=== PATIENT | female | born 1960 | race Caucasian/White ===

== ENCOUNTER 2020-10-05 07:55 | Emergency (ER) | payer OTHER ==
[2020-10-05] MEDS: Morphine 4 MG/ML VIAL IVPUSH ONE (08:27)
[2020-10-05] MEDS: Ondansetron 4 MG/2 ML SDV IVPUSH STA (08:27)
[2020-10-05 08:31] LABS: CHLORIDE,CL 104 mEq/L (98-106); SODIUM,NA 142 mEq/L (136-145)
--- NOTE | 2020-10-05 08:35 | EDM.PDOC ---
ED HPI GENERAL MEDICAL PROBLEM - General Chief Complaint: Gastrointestinal Problem Stated Complaint: abd pain Time Seen by Provider: 10/05/20 08:09 Source of Information: Reports: Patient History Limitations: Reports: No Limitations - History of Present Illness INITIAL COMMENTS - FREE TEXT/NARRATIVE: This patient is a 60 year old female that presents to the ER. Patient reports that at 5am this morning she woke from her sleep, had to urinate. She went to bathroom, urinated, then went back to bed and had sharp severe pain to the right lower abdomen. Patient reports nausea and x2 vomiting. Patient deneis fever, diarrhea, chest pain, shortness of breath, back pain. Onset: Today Onset Date: 10/05/20 Onset Time: 05:00 Location: Reports: Abdomen Quality: Reports: Sharp Severity: Moderate Improves with: Reports: None Worsens with: Reports: None Associated Symptoms: Reports: No Other Symptoms, Nausea/Vomiting. Denies: Confusion, Chest Pain, Cough, cough w sputum, Diaphoresis, Fever/Chills, Headaches, Malaise, Rash, Seizure, Shortness of Breath, Syncope, Weakness Right Lower Abdomen Pain Score (Numeric/FACES): 8 - Related Data Allergies Allergy/AdvReac Type Severity Reaction Status Date / Time No Known Allergies Allergy Verified 10/05/20 08:21 Home Meds: Home Meds . [No Known Home Meds] 10/05/20 [History] Past Medical History - Past Health History Medical/Surgical History: Denies Medical/Surgical History Social & Family History - Tobacco Use Tobacco Use Status *Q: Former Tobacco User Used Tobacco, but Quit: Yes Month/Year Tobacco Last Used: 8 y.o - Caffeine Use Caffeine Use: Reports: Coffee - Recreational Drug Use Recreational Drug Use: No ED ROS GENERAL - Review of Systems Review Of Systems: See Below Constitutional: Reports: No Symptoms HEENT: Reports: No Symptoms Respiratory: Reports: No Symptoms Cardiovascular: Reports: No Symptoms Endocrine: Reports: No Symptoms GI/Abdominal: Reports: Abdominal Pain : Reports: No Symptoms Musculoskeletal: Reports: No Symptoms Skin: Reports: No Symptoms Neurological: Reports: No Symptoms Psychiatric: Reports: No Symptoms Hematologic/Lymphatic: Reports: No Symptoms Immunologic: Reports: No Symptoms ED EXAM, GI/ABD - Physical Exam Exam: See Below Exam Limited By: No Limitations General Appearance: Alert, WD/WN, No Apparent Distress Ears: Normal External Exam, Normal Canal, Hearing Grossly Normal, Normal TMs Nose: Normal Inspection, Normal Mucosa, No Blood Throat/Mouth: Normal Inspection, Normal Lips, Normal Teeth, Normal Gums, Normal Oropharynx, Normal Voice, No Airway Compromise Head: Atraumatic, Normocephalic Neck: Normal Inspection, Supple, Non-Tender Respiratory/Chest: No Respiratory Distress, Lungs Clear, Normal Breath Sounds, No Accessory Muscle Use Cardiovascular: Normal Peripheral Pulses, Regular Rate, Rhythm, No Edema, No Gallop, No JVD, No Murmur, No Rub GI/Abdominal Exam: Normal Bowel Sounds, Soft, No Organomegaly, No Distention, No Abnormal Bruit, No Mass, Pelvis Stable, Tender (RLQ, RUQ) Back Exam: Normal Inspection, Full Range of Motion. No: CVA Tenderness (L), CVA Tenderness (R) Extremities: Normal Inspection, Normal Range of Motion, Non-Tender, No Pedal Edema, Normal Capillary Refill Neurological: Alert, Oriented, Normal Cognition, Normal Gait, No Motor/Sensory Deficits Psychiatric: Normal Affect, Normal Mood Skin Exam: Warm, Dry, Intact, Normal Color, No Rash Lymphatic: No Adenopathy Course - Vital Signs Last Recorded V/S: Last Vital Signs Temp 95.6 F L 10/05/20 08:07 Pulse 70 10/05/20 08:10 Resp 22 H 10/05/20 08:07 BP 149/68 H 10/05/20 08:24 Pulse Ox 100 10/05/20 08:10 - Orders/Labs/Meds Orders: Active Orders 24 hr Category Date Time Status Abdomen Pelvis wo Cont [CT] Stat Exams 10/05/20 08:41 Taken Sodium Chloride 0.9% [Normal Saline] 1,000 ml Med 10/05/20 09:15 Active IV .BOLUS Medication Orders Sodium Chloride (Normal Saline) 1,000 mls @ 999 mls/hr IV .BOLUS ONE Stop: 10/05/20 10:15 Last Admin: 10/05/20 09:21 Dose: 999 mls/hr Documented by: JEANETTE Labs: Laboratory Tests 10/05/20 10/05/20 10/05/20 Range/Units 08:09 08:14 08:14 WBC 9.2 (4.0-11.0) 10^3/uL RBC 4.51 (4.00-5.50) x10^6/uL Hgb 13.8 (12.0-16.0) g/dL Hct 40.2 (37.0-47.0) % MCV 89.1 (83.0-97.0) fL MCH 30.6 (27.0-32.0) pg MCHC 34.3 (32.0-36.0) g/dL RDW Coeff of Michelle 12.5 (11.0-15.0) % Plt Count 211 (150-400) 10^3/uL Immature Gran % (Auto) 0.3 (0.0-4.9) % Neut % (Auto) 65.3 (41-71) % Lymph % (Auto) 26.3 (24-44) % [place] % (Auto) 6.4 (0-10) % Eos % (Auto) 1.4 (0-6) % Baso % (Auto) 0.3 (0-1) % Neut # (Auto) 6.03 (1.80-8.00) x10^3/uL Lymph # (Auto) 2.43 (0.60-5.00) 10^3/uL [place] # (Auto) 0.59 (0.00-1.50) 10^3/uL Eos # (Auto) 0.13 (0.00-1.50) 10^3/uL Baso # (Auto) 0.03 (0.00-0.50) 10^3/uL Immature Gran # (Auto) 0.03 (0.00-0.49) 10^3/uL Sodium 142 (136-145) mEq/L Potassium 3.8 (3.5-5.0) mEq/L Chloride 104 (98-106) mEq/L Carbon Dioxide 23 (21-32) mmol/L BUN 20 H (7-18) mg/dL Creatinine 1.0 (0.6-1.0) mg/dL Est Cr Clr Drug Dosing 46.13 mL/min Estimated GFR (MDRD) 56 L (>=60) mL/min Glucose 123 H D (75-99) mg/dL Calcium 9.7 (8.4-10.1) mg/dL Total Bilirubin 1.0 (0.0-1.0) mg/dL AST 18 (15-37) U/L ALT 19 (12-78) U/L Alkaline Phosphatase 73 (46-116) U/L C-Reactive Protein < 0.2 L (0.2-0.8) mg/dL Total Protein 8.0 (6.4-8.2) g/dL Albumin 4.1 (3.4-5.0) g/dL Amylase 42 (25-115) U/L Lipase 100 (73-393) U/L Urine Color Dark yellow (YELLOW) Urine Appearance Slightly cloudy (CLEAR) Urine pH 6.0 (4.5-8.0) Ur Specific [place] >= 1.030 H (1.003-1.020) Urine Protein 100 H (NEGATIVE) mg/dL Urine Glucose (UA) Negative (NEGATIVE) mg/dL Urine Ketones Negative (NEGATIVE) mg/dL Urine Occult Blood Large H (NEGATIVE) Urine Nitrite Negative (NEGATIVE) Urine Bilirubin Negative (NEGATIVE) Urine Urobilinogen 0.2 (0.2-1.0) EU/dL Ur Leukocyte Esterase Negative (NEGATIVE) Urine RBC >100 H (0-5) /HPF Urine WBC 5-10 H (0-5) /HPF Ur Epithelial Cells Few H (NOT SEEN) /HPF Urine Bacteria Few H (NOT SEEN) /HPF Urine Mucus Few H (NOT SEEN) /HPF Meds: Medications Generic Name Dose Route Start Last Admin Trade Name Freq PRN Reason Stop Dose Admin Sodium Chloride 1,000 mls @ 999 mls/hr 10/05/20 09:15 10/05/20 09:21 Normal Saline IV 10/05/20 10:15 999 mls/hr .BOLUS ONE Administration Discontinued Medications Generic Name Dose Route Start Last Admin Trade Name Freq PRN Reason Stop Dose Admin Ketorolac Tromethamine 30 mg 10/05/20 09:15 10/05/20 09:21 Ketorolac 30 Mg/Ml Sdv IVPUSH 10/05/20 09:16 30 mg ONETIME ONE Administration Morphine Sulfate 4 mg 10/05/20 08:22 10/05/20 08:27 Morphine 4 Mg/Ml Vial IVPUSH 10/05/20 08:23 4 mg ONETIME ONE Administration Ondansetron HCl 4 mg 10/05/20 08:22 10/05/20 08:27 Ondansetron 4 Mg/2 Ml Sdv IVPUSH 10/05/20 08:23 4 mg NOW STA Administration - Radiology Interpretation Free Text/Narrative:: CT Abd/Pelvis without contrast: Right hydronephrosis, distal ureter inflammation. No visible stone, may have passed. Otherwise abdomen/pelvis unremarkable. CT Results Date: 10/05/20 CT Results Time: 10:05 - Re-Assessments/Exams Free Text/Narrative Re-Assessment/Exam: 10/05/20 08:46 Reviewed patient labs. No elevated wbc, no fever. Her urine is blood filled. Will CT without contrast. 10/05/20 10:09 Patient has been pain free since urinating in the ER. Departure - Departure Time of Disposition: 10:07 Disposition: Home, Self-Care 01 Condition: Good Clinical Impression: Hydronephrosis Qualifiers: Hydronephrosis type: other Qualified Code(s): N13.39 - Other hydronephrosis - Discharge Information *PRESCRIPTION DRUG MONITORING PROGRAM REVIEWED*: Not Applicable *COPY OF PRESCRIPTION DRUG MONITORING REPORT IN PATIENT CHARISSE: Not Applicable Instructions: Kidney Stones, [id number] Forms: ED Department Discharge Additional Instructions: Followup with your primary care provider as needed Return to the ER for worsening of condition or any emergent concerns Increase water intake Sepsis Event Note (ED) - Evaluation Sepsis Screening Result: No Definite Risk - Focused Exam Vital Signs: Vital Signs Temp Pulse Resp BP Pulse Ox 10/05/20 08:24 149/68 H 10/05/20 08:10 70 161/79 H 100 10/05/20 08:07 95.6 F L 82 22 H 156/100 H 100 - My Orders Last 24 Hours: My Active Orders 10/05/20 08:41 Abdomen Pelvis wo Cont [CT] Stat 10/05/20 09:15 Sodium Chloride 0.9% [Normal Saline] 1,000 ml IV .BOLUS - Assessment/Plan Last 24 Hours: My Active Orders 10/05/20 08:41 Abdomen Pelvis wo Cont [CT] Stat 10/05/20 09:15 Sodium Chloride 0.9% [Normal Saline] 1,000 ml IV .BOLUS Plan: PLEASE SEE RN NOTE FOR PFSH
[2020-10-05] MEDS: Ketorolac 30 MG/ML SDV IVPUSH ONE (09:21)
[2020-10-05] MEDS: Sodium Chloride 0.9% 1,000 ML IV ONE (09:21)
== END 2020-10-05 10:20 | disposition home or self-care (01) ==
LOC: CC.ED 07:55
DX: N13.39 Other hydronephrosis (principal); Z87.891 Personal history of nicotine dependence
CPT/HCPCS: 36415; 74176; 80053; 81001; 82150; 83690; 85025; 86140; 96374; 96375; 99284; J1885; J2270; J2405; J7030

== ENCOUNTER → 2022-06-03 | Day surgery (SDC) | payer BC ==
[~2022-06-03] MED LIST: Lidocaine 1% 5 ML VIAL ONE; Lidocaine 1% w/EPINEPHrine 100 ML, Sodium Chloride 0.9% 900 ML, Sodium Bicarbonate 10 MEQ INJECT ONE
[2022-06-03] MEDS: Lidocaine 1% 5 ML VIAL INJECT ONE (14:33)
== END ==
LOC: CC.SDS 13:08
PROVIDERS: ATTEND Family Medicine
DX: I83.812 Varicose veins of left lower extremity with pain (principal); I87.2 Venous insufficiency (chronic) (peripheral); F41.9 Anxiety disorder, unspecified; K21.9 Gastro-esophageal reflux disease without esophagitis; E78.5 Hyperlipidemia, unspecified; Z79.899 Other long term (current) drug therapy; Z87.891 Personal history of nicotine dependence
CPT/HCPCS: 36475; A4216; J3490

== ENCOUNTER → 2022-11-11 | Day surgery (SDC) | payer BC ==
[~2022-11-11] MED LIST changes: +Flumazenil 0.1 MG/ML 10 ML MDV ONE; +Ketamine 200 MG/20 ML MDV ONE; -Lidocaine 1% 5 ML VIAL ONE; -Lidocaine 1% w/EPINEPHrine 100 ML, Sodium Chloride 0.9% 900 ML, Sodium Bicarbonate 10 MEQ INJECT ONE; +Midazolam 1 MG/ML 2 ML SDV ONE; +Phenylephrine 1% 10 MG/ML SDV ONE; +Propofol 200 MG/20 ML SDV ONE; +fentaNYL 50 MCG/ML SDV ONE
[2022-11-11] MEDS: Lactated Ringers 1,000 ML IV SCH (10:53)
== END ==
LOC: CC.SDS 10:10
PROVIDERS: ATTEND Family Medicine
DX: Z12.11 Encounter for screening for malignant neoplasm of colon (principal); K57.30 Diverticulosis of large intestine without perforation or abscess without bleeding; K64.4 Residual hemorrhoidal skin tags; R77.9 Abnormality of plasma protein, unspecified; E87.5 Hyperkalemia; N39.3 Stress incontinence (female) (male); E83.52 Hypercalcemia; F41.9 Anxiety disorder, unspecified; K21.9 Gastro-esophageal reflux disease without esophagitis; E78.5 Hyperlipidemia, unspecified; M17.9 Osteoarthritis of knee, unspecified; Z79.899 Other long term (current) drug therapy; Z87.891 Personal history of nicotine dependence
CPT/HCPCS: 00812; J2250; J2371; J2704; J3010; J3490; J7120

== ENCOUNTER 2024-08-24 11:39 | Emergency (ER) | payer MEDICARE, OTHER ==
[2024-08-24 11:56] LABS: APPEARANCE,URINE CLOUDY (CLEAR); BILIRUBIN,URINE NEGATIVE (NEGATIVE); COLOR,URINE DARK YELLOW (YELLOW); GLUCOSE,URINE NEGATIVE (NEGATIVE); KETONES,URINE NEGATIVE (NEGATIVE); LEUKOCYTE ESTERASE,URINE MODERATE (NEGATIVE); NITRITE,URINE NEGATIVE (NEGATIVE); OCCULT BLOOD,URINE LARGE (NEGATIVE); PH,URINE 8.5 (4.5-8.0); PROTEIN,URINE 100 mg/dL (NEGATIVE); UROBILINOGEN,URINE 0.2 EU/dL (0.2-1.0)
[2024-08-24 12:07] LABS: BACTERIA,URINE FEW /HPF (NOT SEEN); RBC,URINE >100 /HPF (0-5); SQUAMOUS EPITHELIAL CELLS,UR FEW /HPF (NOT SEEN); WBC,URINE >100 /HPF (0-5)
[2024-08-24] MEDS: Lidocaine 1% 5 ML VIAL INJECT ONE (12:18)
[2024-08-24] MEDS: cefTRIAXone 1 GM Vial IM ONE (12:19)
[2024-08-24] MEDS: Take Home: Cefuroxime 250 MG Tab, 2 Tab Pack PO ONE (12:20)
== END 2024-08-24 12:25 | disposition home or self-care (01) ==
LOC: CC.ED 11:39
DX: N30.01 Acute cystitis with hematuria (principal); Z79.899 Other long term (current) drug therapy
CPT/HCPCS: 81001; 87086; 87088; 87186; 96372; 99283; 99284; A9270-GY; J0696; J2003